=== PATIENT | male | born 1995 | race Caucasian/White ===

== ENCOUNTER 2017-01-15 14:53 | Emergency (ER) | payer BC ==
[~2017-01-15] VITALS: Wt 83.2 kg
[~2017-01-15 14:53] MED LIST: CETI10CA PO; DIVA125T14 PO; GUAI118L94 PO; IBUP-1542 PO; LORA1TAB PO; ONDA4TAB35 PO; OSLT75C PO; SERT25TA PO
[2017-01-15] MEDS ORDERED: morphine 4 MG/ML VIAL IV STA (17:43)
[2017-01-15] MEDS ORDERED: ONDANSETRON 4 MG INJ IV STA (17:43)
[2017-01-15 18:26] LABS: BASOPHILS % 0.3 % (0.0-2.0); EOSINOPHILS # 0.1 10^3/ul (0.0-0.5); EOSINOPHILS % 0.6 % (0.0-7.0); HEMATOCRIT 40.8 % (42.0-52.0); HEMOGLOBIN 13.8 g/dl (14.0-18.0); LYMPHOCYTES # 1.9 10^3/ul (0.8-2.9); LYMPHOCYTES % 15.6 % (15.0-51.0); MEAN CORPUSCULAR HEMOGLOBIN 28.8 pg (29.0-33.0); MEAN CORPUSCULAR HGB CONC 33.8 g/dl (32.0-37.0); MEAN PLATELET VOLUME 9.4 fl (7.4-10.4); MONOCYTE # 0.9 10^3/ul (0.3-0.9); MONOCYTES % 7.5 % (0.0-11.0); NEUTROPHIL # 9.4 10^3/ul (1.6-7.5); NEUTROPHILS % 75.8 % (39.0-77.0); PLATELET COUNT 255 10^3/UL (140-415); WHITE BLOOD COUNT 12.4 10^3/ul (4.8-10.8)
[2017-01-15 18:32] LABS: ADD UMIC YES; UR ASCORBIC ACID NEGATIVE (NEGATIVE); UR BILIRUBIN (Dip) NEGATIVE (NEGATIVE); UR BLOOD (Dip) 1+ mg/dL (NEGATIVE); UR CLARITY CLEAR (CLEAR); UR COLOR YELLOW (YELLOW); UR GLUCOSE (Dip) NEGATIVE (NEGATIVE); UR KETONES (Dip) TRACE mg/dL (NEGATIVE); UR LEUKOCYTE ESTERASE (Dip) NEGATIVE Leu/ul (NEGATIVE); UR NITRITE (Dip) NEGATIVE (NEGATIVE); UR RBC 2 /HPF (0-5); UR SPECIFIC GRAVITY (Dip) 1.011 (1.003-1.030); UR TOTAL PROTEIN (Dip) NEGATIVE (NEGATIVE); UR UROBILINOGEN (Dip) NEGATIVE (NEGATIVE)
[2017-01-15 18:47] LABS: ALBUMIN 4.9 g/dl (3.3-4.9); ALBUMIN/GLOBULIN RATIO 1.58; BILIRUBIN,INDIRECT 0.4 mg/dl (0-1.1); BILIRUBIN,TOTAL 0.4 mg/dl (0.2-1.3); CALCIUM 9.4 mg/dl (8.4-10.2); CREATININE 0.82 mg/dl (0.61-1.24); POTASSIUM 3.7 mmol/L (3.5-5.1)
--- NOTE | 2017-01-15 20:16 | RADRPT ---
PROCEDURE: CT Abdomen and Pelvis without contrast. CLINICAL INDICATION: Abdominal pain TECHNIQUE: CT scan of the abdomen and pelvis was performed on a multidetector high-resolution CT s canner without intravenous contrast. Coronal and sagittal reformatted images were obtained from the axial source images. Images were reviewed on a high-resolution PACS workstation. The total exam CTD I equals 14mGy and the total exam DLP equals 878mGy-cm. One or more of the following dose reduction techniques were used: Automated exposure control, Adjustment of the mA and/or kV according to patien t size, and/or use of iterative reconstruction technique. DICOM images are available. COMPARISON: None. FINDINGS: Evaluation of the solid organs is limited given the lack of intravenous contrast administration. The lung bases are clear. Hypoattenuation of the liver. No pancreatic ductal dilatation. Spleen and adrenals are unremarkable. Mildly distended gallbladder with questionable gallbladder wall thickening. No hydronephrosis. 1 mm punctate nonobstructing right renal calcification. No obstructing renal sto eva. No bowel obstruction. Normal-caliber appendix. No significant retroperitoneal lymphadenopathy or evidence of pneumoperitoneum. Mild pelvic ascites. Trace grade 1 anterolisthesis of L5 on S1 with bilateral L5 pars defects. IMPRESSION: 1 mm punctate nonobstructing right renal stone. No obstructing renal stones. Mildly distended gallbladder with questionable gallbladder wall thickening. If warranted, consider u ltrasound for further characterization. No evidence of bowel obstruction or appendicitis. Mild hepatic steatosis. Mild pelvic ascites. RPTAT: AA .Darrel Barnett MD, Date Time Electronically viewed and signed by .Darrel Barnett MD, on 01/15/2017 20:15 .T/
[2017-01-15] MEDS ORDERED: KETOROLAC 30 MG INJ IV STA (20:19)
[2017-01-15] MEDS ORDERED: FAMO-96 PO (20:22)
[2017-01-15] MEDS ORDERED: TRAM50TA2 PO (20:22)
[2017-01-15] MEDS ORDERED: ONDA8TAB14 PO (20:22)
--- NOTE | 2017-01-15 20:26 | ERD ---
ER Documentation Chief Complaint Chief Complaint ABD PAIN X2 DAYS, VOMITING HPI 21-year-old male complains of vomiting since yesterday. Is also has some upper abdominal pain. He is unable to describe the pain. He denies any exquisite right upper quadrant pain denies any lower abdominal pain. He states he has been constipated as well although he had a bowel movement today although he is concerned that it is less than normal. His last bowel movement prior was 3 days ago. Denies any history of constipation. He has started after eating a Db's. Denies any flank or sick contacts. Denies any fevers or blood. ROS All systems reviewed and are negative except as per history of present illness. Medications Home Meds Active Scripts Famotidine* (Pepcid*) 20 Mg Tablet, 20 MG PO BID for 7 Days, #15 TAB Prov:NICANOR SEVILLA MD 01/15/17 Ondansetron (Ondansetron Odt) 8 Mg Tab.rapdis, 8 MG PO Q6H Y for NAUSEA AND/OR VOMITING, #10 TAB Prov:NICANOR SEVILLA MD 01/15/17 Tramadol HCl (Tramadol HCl) 50 Mg Tablet, 50 MG PO Q4 Y for PAIN, #15 TAB Prov:NICANOR SEVLILA MD 01/15/17 Ondansetron Hcl* (Zofran* ODT) 4 mg -ODT Tab.disper, 4 MG PO Q8 Y for NAUSEA AND OR VOMITING, #30 TAB Prov:MADELYN MALDONADO NP 04/03/15 Ibuprofen* (Ibuprofen*) 600 Mg Tablet, 600 MG PO Q6H Y for PAIN AND OR ELEVATED TEMP, #30 TAB Prov:MADELYN MALDONADO NP 04/03/15 Cetirizine Hcl* (Zyrtec*) 10 Mg Capsule, 10 MG PO DAILY, #30 TAB Prov:MADELYN MALDONADO NP 04/03/15 Guaifenesin-Codeine Phosphate* (Guaifenesin* with Codeine Liq) 120 Ml Liquid, 5 ML PO Q4H for COUGH, #60 ML Prov:MADELYN MALDONADO NP 04/03/15 Oseltamivir Phosphate* (Tamiflu*) 75 Mg Capsule, 75 MG PO BID for 5 Days, CAP Prov:MADELYN MALDONADOMichelle JACQUES 04/03/15 Lorazepam* (Lorazepam*) 1 Mg Tablet, 1 MG PO Q8, #10 TAB Prov:NICANOR SEVILLA MD 11/29/14 Ibuprofen* (Motrin*) 600 Mg Tab, 600 MG PO Q6, #15 TAB Prov:NICANOR SEVILLA MD 11/29/14 Reported Medications Divalproex Sodium* (Depakote*) Unknown Strength Tablet.dr, PO TID, #90 TAB 04/03/15 Sertraline Hcl* (Zoloft*) Unknown Strength Tablet, PO DAILY, #30 TAB 04/03/15 Allergies Allergies: Coded Allergies: No Known Allergies (Verified Allergy, Unknown, 04/18/14) PMhx/Soc History of Surgery: No Anesthesia Reaction: No Hx Neurological Disorder: No Hx Respiratory Disorders: No Hx Cardiac Disorders: No Hx Psychiatric Problems: Yes (depression) Hx Miscellaneous Medical Probl: No Hx Alcohol Use: No Hx Substance Use: No Hx Tobacco Use: Yes (2-3 cigs per month) Smoking Status: Never smoker Physical Exam Vitals Vital Signs Date Time Temp Pulse Resp B/P Pulse Ox O2 Delivery O2 Flow Rate FiO2 01/15/17 19:32 84 12 138/63 100 Room Air 01/15/17 14:56 98.6 88 17 140/63 98 Physical Exam Const: [], [id number]. No apparent distress. Head: Atraumatic Eyes: Normal Conjunctiva ENT: Normal External Ears, Nose and Mouth. Neck: Full range of motion..~ No meningismus. Resp: Clear to auscultation bilaterally Cardio: Regular rate and rhythm, no murmurs Abd: Soft, mildly tender in the epigastric and upper abdomen. No exquisite tenderness or Rodriguez sign and no tenderness at McBurney's point. No rebound. non distended. Normal bowel sounds Skin: No petechiae or rashes Back: No midline or flank tenderness Ext: No cyanosis, or edema Neur: Awake and alert Psych: Normal Mood and Affect Result Diagram: 01/15/17180901/15/171809 Results 24 hrs Laboratory Tests Test 01/15/17 18:10 White Blood Count 12.410^3/ul Red Blood Count 4.8010^6/ul Hemoglobin 13.8g/dl Hematocrit 40.8% Mean Corpuscular Volume 85.0fl Mean Corpuscular Hemoglobin 28.8pg Mean Corpuscular Hemoglobin Concent 33.8g/dl Red Cell Distribution Width 13.0% Platelet Count 09319^3/UL Mean Platelet Volume 9.4fl Neutrophils % 75.8% Lymphocytes % 15.6% Monocytes % 7.5% Eosinophils % 0.6% Basophils % 0.3% Nucleated Red Blood Cells % 0.0/100WBC Neutrophils # 9.410^3/ul Lymphocytes # 1.910^3/ul Monocytes # 0.910^3/ul Eosinophils # 0.110^3/ul Basophils # 0.010^3/ul Nucleated Red Blood Cells # 0.010^3/ul Urine Color YELLOW Urine Clarity CLEAR Urine pH 7.0 Urine Specific [place] 1.011 Urine Ketones TRACEmg/dL Urine Nitrite NEGATIVEmg/dL Urine Bilirubin NEGATIVEmg/dL Urine Urobilinogen NEGATIVEmg/dL Urine Leukocyte Esterase NEGATIVELeu/ul Urine Microscopic RBC 2/HPF Urine Microscopic WBC 1/HPF Urine Hemoglobin 1+mg/dL Urine Glucose NEGATIVEmg/dL Urine Total Protein NEGATIVEmg/dl Sodium Level 143mmol/L Potassium Level 3.7mmol/L Chloride Level 98mmol/L Carbon Dioxide Level 29mmol/L Anion Gap 20 Blood Urea Nitrogen 6mg/dl Creatinine 0.82mg/dl Glucose Level 108mg/dl Calcium Level 9.4mg/dl Total Bilirubin 0.4mg/dl Direct Bilirubin 0.00mg/dl Indirect Bilirubin 0.4mg/dl Aspartate Amino Transf (AST/SGOT) 26IU/L Alanine Aminotransferase (ALT/SGPT) 41IU/L Alkaline Phosphatase 58IU/L Total Protein 8.0g/dl Albumin 4.9g/dl Globulin 3.10g/dl Albumin/Globulin Ratio 1.58 Lipase 26U/L Current Medications Medications (Trade) Dose Ordered Sig/Airam Route PRN Reason Start Time Stop Time Status Last Admin Dose Admin Morphine Sulfate (morphine) 4 mg ONCE STAT IV 01/15/17 17:43 01/15/17 17:44 DC 01/15/17 18:32 Ondansetron HCl (Zofran Inj) 4 mg ONCE STAT IV 01/15/17 17:43 01/15/17 17:44 DC 01/15/17 18:32 Ketorolac Tromethamine (Toradol) 30 mg ONCE STAT IV 01/15/17 20:19 01/15/17 20:20 DC Famotidine (Pepcid Iv) 20 mg ONCE ONCE IV 01/15/17 20:30 01/15/17 20:31 Procedures/MDM CBC shows leukocytosis of 12.4 and hemoglobin of 13.8. CMP and lipase is normal. Shows 1+ hemoglobin. The uncertain cause of pain CT abdomen pelvis performed shows no acute abnormalities except for possibly distended gallbladder without gallstones correlate clinically for signs of cholecystitis. Doubt cholecystitis as patient does not have right upper quadrant tenderness no abnormalities are seen. No gallstones. Serial abdominal exam shows that the patient primarily has upper mid abdominal pain. Patient was given morphine form of grams IV and Zofran 4 mg IV initially. Patient is uncertain cause of pain. He may have early viral illness. Current signs or symptoms do not show significant signs to suggest cholecystitis, is no evidence of gallstones, current signs and symptoms do not suggest appendicitis and there is no evidence of UTI additional emergent causes abdominal pain. We treated with tramadol Zofran and Pepcid and further observation at home. Given Toradol 31 g IV and Pepcid 20 mg IV prior to discharge and was stable throughout ED course. The patient was stable with no new complaints during the ER course. Clinically, there is no current evidence to suggest meningitis, sepsis, acute abdomen, pneumonia, acute coronary syndrome, pulmonary embolism, or any other emergent condition appearing to require further evaluation or hospitalization. The patient should certainly return for any new or worsening symptoms per the aftercare instructions. They should otherwise follow-up with her primary care doctor for reevaluation this week. Departure Diagnosis: Primary Impression: Vomiting Vomiting type: unspecified Vomiting Intractability: unspecified Nausea presence: unspecified Qualified Code: R11.10 - Vomiting, intractability of vomiting not specified, presence of nausea not specified, unspecified vomiting type Additional Impression: Abdominal pain Abdominal location: upper abdomen, unspecified Qualified Code: R10.10 - Pain of upper abdomen Condition: Stable Patient Instructions: Abdominal Pain, Vomiting (Child, 2-5 Yr) Additional Instructions: Because of symptoms. May be viral illness. Recheck with primary doctor return for fevers, blood, new or worsening symptoms next 8-12 hours. Drink plenty of thick clear fluids and bland diet. NICANOR SEVILLA MD Jan 15, 2017 20:26
[2017-01-15] MEDS ORDERED: FAMOTIDINE 20 MG INJ IV ONE (20:30)
[2017-01-15 20:48] VITALS: BP 131/60; PULSE 92; RESP 16; TEMP 98.9
== END 2017-01-15 20:49 | disposition home or self-care (01) ==
LOC: FTE 14:53
DX: R11.10 Vomiting, unspecified (principal); F17.210 Nicotine dependence, cigarettes, uncomplicated
CPT/HCPCS: 36415; 74176; 80053; 81001; 83690; 85025; 96374; 96375; 99285; J1885; J2270; J2405; Z7610